=== PATIENT | female | born 1985 | race Caucasian/White ===

== ENCOUNTER 2017-08-03 11:29 | Emergency (ER) | payer OTHER ==
[~2017-08-03] VITALS: Ht 175.3 cm; Wt 97.5 kg
[~2017-08-03 11:29] MED LIST: ALPRAZOLAM1 MG PO; AUGMENTIN 875-1 EACH PO; BACTRIM DS TAB1 EACH PO; BACTROBAN22 GM TOP; BENADRYL25 MG PO; CIPRO500 MG PO; CLINDAMYCIN HC300 MG PO; CYCLOBENZAPRINE10 MG PO; CYCLOBENZAPRINE5 MG PO; DOXYCYCLINE HY100 MG; FLAGYL500 MG; HYDROCODON-ACE1 EA10 PO; IBUPROFEN400 MG PO; IBUPROFEN800 MG PO; KEFLEX500 MG PO; KETOROLAC TROME10 MG PO; METOPROLOL SUCC25 MG PO; NORCO 5-325 TA1 EACH PO; ONDANSETRON ODT4 MG SL; OXYCODONE-ACET1 EAC1 PO; PENICILLIN V P500 MG PO; PERCOCET 5-3251 EACH PO; PROMETHAZINE HC25 M1 PO; TYLENOL325 MG PO; XANAX1 MG PO; XANAX2 MG PO; ZOFRAN4 MG PO
[2017-08-03] MEDS ORDERED: XANAX1 MG PO (11:43)
--- NOTE | 2017-08-04 14:23 | EKG ---
[facility] [address] [place] [address] Signed Normal sinus rhythm Normal ECG No previous ECGs available Confirmed by MAYELIN ALLISON MD ([id number]) on 08/04/2017 2:23:48 PM Electronically Signed By: MAYELIN ALLISON MD 08/04/17 1423 PATIENT NAME: ULISES EDWARDS Electrocardiogram DATE OF : 89 PHYSICIAN: MAYELIN ALLISON MD REPORT #: [id number] REPORT IS CONFIDENTIAL AND NOT TO BE RELEASED WITHOUT AUTHORIZATION
== END 2017-08-03 13:38 | disposition home or self-care (01) ==
LOC: ED 11:29
DX: R07.89 Other chest pain (principal); F17.200 Nicotine dependence, unspecified, uncomplicated; D64.9 Anemia, unspecified; Z98.51 Tubal ligation status; Z88.5 Allergy status to narcotic agent; Z79.899 Other long term (current) drug therapy; Z87.442 Personal history of urinary calculi
CPT/HCPCS: 36415; 71010; 80053; 81001; 84484; 84703; 85025; 93005; 93010; 99283

== ENCOUNTER → 2018-03-11 | Emergency (ER) | payer OTHER ==
[~2018-03-11] VITALS: Ht 175.3 cm; Wt 101.6 kg
[~2018-03-11] MED LIST changes: +DICLOFENAC SOD100 MG PO; +FLUTICASONE PRO16 GM NAS; +SUMATRIPTAN SU100 MG PO
== END ==
LOC: ED 17:43
DX: R10.31 Right lower quadrant pain (principal); F17.200 Nicotine dependence, unspecified, uncomplicated; Z88.5 Allergy status to narcotic agent; Z79.899 Other long term (current) drug therapy
CPT/HCPCS: 74177; 80053; 81001; 82150; 83690; 85025; 96361; 96374; 96375; 99284; J1885; J2405; J7030; Q9967

== ENCOUNTER 2021-07-03 20:46 | Emergency (ER) | payer OTHER ==
[~2021-07-03] VITALS: Ht 175.3 cm; Wt 101.6 kg
--- OUTSIDE RECORDS SUMMARY | 2021-07-03 20:48 | XMS ---
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 ERobbie VISIT COUNT (12 MO.) 1 LISSY Maddox TOTAL 1 NOTE: Visits indicate total known visits. ED/UCC VISIT TRACKING (12 MO.) 07/03/2021 20:47 LISSY Gorman [place] TYPE: Emergency COMPLAINT: - CHEST PAIN INPATIENT VISIT TRACKING (12 MO.) No inpatient visits to display in this time frame [id number]
== END 2021-07-03 22:54 | disposition home or self-care (01) ==
LOC: ED 20:46
DX: R07.9 Chest pain, unspecified (principal); D64.9 Anemia, unspecified; F17.200 Nicotine dependence, unspecified, uncomplicated; Z88.5 Allergy status to narcotic agent; Z79.899 Other long term (current) drug therapy
CPT/HCPCS: 71045; 80053; 83735; 84484; 85025; 93005; 93010; 99285-25

== ENCOUNTER 2022-07-28 10:02 | Emergency (ER) | payer OTHER ==
[~2022-07-28] VITALS: Ht 175.3 cm; Wt 98.3 kg
--- OUTSIDE RECORDS SUMMARY | 2022-07-28 10:05 | XMS ---
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 ERobbie VISIT COUNT (12 MO.) 1 LISSY Maddox TOTAL 1 NOTE: Visits indicate total known visits. ED/UCC VISIT TRACKING (12 MO.) 07/28/2022 10:03 LISSY [facility] [place] TYPE: Emergency COMPLAINT: - RT HAND INJ INPATIENT VISIT TRACKING (12 MO.) No inpatient visits to display in this time frame [id number]
[2022-07-28] MEDS ORDERED: AMOX TR-K CLV1 EAC1 PO (10:16)
[2022-07-28] MEDS ORDERED: IBU600 MG PO (10:16)
== END 2022-07-28 11:10 | disposition home or self-care (01) ==
LOC: ED 10:02
DX: S61.451A Open bite of right hand, initial encounter (principal); W54.0XXA Bitten by dog, initial encounter; D64.9 Anemia, unspecified; F17.200 Nicotine dependence, unspecified, uncomplicated; Z88.5 Allergy status to narcotic agent; Z79.899 Other long term (current) drug therapy
CPT/HCPCS: 73130; 90471; 90714; 99283-25; A9270

== ENCOUNTER 2022-11-13 08:47 | Emergency (ER) | payer OTHER ==
[~2022-11-13] VITALS: Ht 175.3 cm; Wt 98.0 kg
[~2022-11-13 08:47] MED LIST changes: +AMOX TR-K CLV1 EAC1 PO; +IBU600 MG PO
--- OUTSIDE RECORDS SUMMARY | 2022-11-13 08:50 | XMS ---
PreManage Notification: ULISES TAVAREZ Security Chairman And Ceo Events No recent Security Events currently on file CRITERIA MET - GEOVANNA CARE PROVIDERS -[place]- Dentist: Video Games Mechanic [facility] PHONE: [phone] OMID NG Physician Acoustical Installer 07/04/2021-Current PHONE: Unknown Stuart has no Care Guidelines for this patient. Zaki VISIT COUNT (12 MO.) 2 LISSY Maddox TOTAL 2 NOTE: Visits indicate total known visits. ED/UCC VISIT TRACKING (12 MO.) 11/13/2022 08:47 LISSY [facility] [place] TYPE: Emergency COMPLAINT: - R ANKLE PAIN 07/28/2022 10:03 LISSY [place] [place] TYPE: Emergency COMPLAINT: - RT HAND INJ DIAGNOSES: - Nicotine dependence, unspecified, uncomplicated - Open bite of right hand, initial encounter - Allergy status to narcotic agent - Bitten by dog, initial encounter - Anemia, unspecified - Open bite of right hand, initial encounter - Other residential (current) drug therapy INPATIENT VISIT TRACKING (12 MO.) No inpatient visits to display in this time frame [id number]
== END 2022-11-13 09:21 | disposition home or self-care (01) ==
LOC: ED 08:47
DX: S93.401A Sprain of unspecified ligament of right ankle, initial encounter (principal); D64.9 Anemia, unspecified; F17.200 Nicotine dependence, unspecified, uncomplicated; Z88.5 Allergy status to narcotic agent; Z79.899 Other long term (current) drug therapy; X50.1XXA Overexertion from prolonged static or awkward postures, initial encounter
CPT/HCPCS: 73610; 99283-25; A9270

== ENCOUNTER 2023-10-22 18:35 | Emergency (ER) | payer OTHER ==
[~2023-10-22] VITALS: Ht 175.3 cm; Wt 98.3 kg
--- OUTSIDE RECORDS SUMMARY | 2023-10-22 18:38 | XMS ---
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 E.DAshleigh VISIT COUNT (12 MO.) 2 LISSY Maddox TOTAL 2 NOTE: Visits indicate total known visits. ED/UCC VISIT TRACKING (12 MO.) 10/22/2023 18:36 LISSY [facility] [place] TYPE: Emergency COMPLAINT: - ABDOMINAL PAIN 11/13/2022 08:47 LISSY [facility] [place] TYPE: Emergency COMPLAINT: - R ANKLE PAIN DIAGNOSES: - Allergy status to narcotic agent - Anemia, unspecified - Nicotine dependence, unspecified, uncomplicated - Other terminal supervisor (current) drug therapy - Overexertion from prolonged static or awkward postures, initial encounter - Pain in right ankle and joints of right foot - Sprain of unspecified ligament of left ankle, initial encounter - Sprain of unspecified ligament of right ankle, initial encounter INPATIENT VISIT TRACKING (12 MO.) No inpatient visits to display in this time frame [id number]
[2023-10-22] MEDS ORDERED: ALPRAZOLAM0.5 MG PO (19:02)
[2023-10-22 19:26] LABS: BASOPHILS 1.1 % (0-2); EOSINOPHILS 4.6 % (0-6); HEMATOCRIT 39.4 % (35.0-50.0); HEMOGLOBIN 13.4 g/dL (12.0-18.0); MCH 29.3 (27-36); MCV 86.1 fl (81-99); MONOCYTES 7.7 % (0-12); NEUTROPHILS 46.6 % (39-80); PLATELET COUNT 214 K/uL (140-440); RBC 4.58 M/ul (4.3-5.7); RDW 13.4 (10.5-15.0)
[2023-10-22 19:38] LABS: ALBUMIN 3.4 g/dL (3.4-5.0); ALBUMIN/GLOBULIN RATIO 1.03 (1.1-2.4); ANION GAP 12.5 (7-21); BILIRUBIN, TOTAL 0.5 ng/dL (0.2-1.0); BUN/CREATININE RATIO 14.81 (6.0-28.6); CALCIUM 8.1 mg/dL (8.5-10.1); CREATININE, SERUM 0.81 mg/dL (0.55-1.02); POTASSIUM 3.5 mmol/L (3.5-5.1); PROTEIN, TOTAL 6.7 g/dL (6.4-8.2)
[2023-10-22 21:41] LABS: BILIRUBIN, URINE NEGATIVE (negative); BLOOD/HGB, URINE NEGATIVE (Negative); KETONE, URINE NEGATIVE (Negative); LEUK ESTERASE, URINE NEGATIVE (negative); NITRITE, URINE NEGATIVE (negative)
[2023-10-22] MEDS ORDERED: ONDANSETRON ODT8 MG PO (22:02)
[2023-10-22] MEDS ORDERED: FLOMAX0.4 MG PO (22:02)
[2023-10-22] MEDS ORDERED: HYDROCODON-ACE1 EA10 PO (22:02)
[2023-10-22 22:31] VITALS: BP 105/69
== END 2023-10-22 22:30 | disposition home or self-care (01) ==
LOC: ED 18:35
DX: N20.0 Calculus of kidney (principal); F17.200 Nicotine dependence, unspecified, uncomplicated; Z88.5 Allergy status to narcotic agent; Z79.899 Other long term (current) drug therapy; Z87.442 Personal history of urinary calculi
CPT/HCPCS: 36415; 74176; 80053; 81003; 83690; 84703; 85025; 96361; 96374; 96375; 99284-25; A9270; J1170; J2405; J7121

== ENCOUNTER 2024-08-18 08:11 | Emergency (ER) | payer OTHER ==
[~2024-08-18] VITALS: Ht 175.3 cm; Wt 96.5 kg
[~2024-08-18 08:11] MED LIST changes: +ALPRAZOLAM0.5 MG PO; +FLOMAX0.4 MG PO; +ONDANSETRON ODT8 MG PO
[2024-08-18] MEDS ORDERED: HYDROCODON-ACE1 EA10 PO (09:22)
[2024-08-18] MEDS ORDERED: HYDROmorphone HCL 1 MG/ML SYR IM ONE (09:30)
[2024-08-18 10:31] VITALS: BP 121/73
== END 2024-08-18 10:00 | disposition home or self-care (01) ==
LOC: ED 08:11
DX: S32.2XXA Fracture of coccyx, initial encounter for closed fracture (principal); W10.9XXA Fall (on) (from) unspecified stairs and steps, initial encounter; F17.200 Nicotine dependence, unspecified, uncomplicated; Z88.5 Allergy status to narcotic agent; Z79.899 Other long term (current) drug therapy
CPT/HCPCS: 72170; 72220; 96372; 99283; J1171

== ENCOUNTER 2025-04-19 01:08 | Emergency (ER) | payer OTHER ==
[~2025-04-19] VITALS: Ht 175.3 cm; Wt 108.7 kg
[2025-04-19] MEDS ORDERED: SODIUM CHLORIDE 0.9% 1,000 ML IV SCH (01:30)
[2025-04-19 01:34] LABS: BASOPHILS 0.9 % (0.1-1.2); EOSINOPHILS 6.1 % (0.7-5.8); LYMPHOCYTES 37.7 % (19.3-51.7); MCH 28.6 PG (25.6-32.2); MCHC 33.3 g/dL (32.2-35.5); MCV 85.9 fL (79.4-94.8); MONOCYTES 6.7 % (4.7-12.5); NEUTROPHILS 48.5 % (34.0-71.1); RBC 4.75 M/uL (3.93-5.22)
[2025-04-19 01:44] LABS: ALT (SGPT) 22.0 U/L (14-59); AST (SGOT) 14.0 U/L (15-37); GLOMERULAR FILTRATION RATE,EST 116.0 mL/min (>60); PROTEIN, TOTAL 6.9 g/dL (6.4-8.2); UREA NITROGEN 10.0 mg/dL (7-18)
[2025-04-19 02:48] LABS: BLOOD/HGB, URINE NEGATIVE (Negative); KETONE, URINE NEGATIVE (Negative); LEUK ESTERASE, URINE NEGATIVE (negative); NITRITE, URINE NEGATIVE (negative)
[2025-04-19] MEDS ORDERED: ONDANSETRON ODT8 MG PO (03:44)
[2025-04-19] MEDS ORDERED: ONDANSETRON 4 MG HOME.PACK SL ONE (03:45)
[2025-04-19 04:04] VITALS: BP 124/71
== END 2025-04-19 04:04 | disposition home or self-care (01) ==
LOC: ED 01:08
PROVIDERS: Emergency Medicine
DX: R19.7 Diarrhea, unspecified (principal); R11.0 Nausea; R10.11 Right upper quadrant pain; Z87.442 Personal history of urinary calculi; F17.200 Nicotine dependence, unspecified, uncomplicated; Z88.5 Allergy status to narcotic agent; Z79.899 Other long term (current) drug therapy
CPT/HCPCS: 36415; 74177; 80053; 81003; 83690; 84703; 85025; 96361; 96374; 99284-25; A9270; J2405; J7030; Q9967